=== PATIENT | female | born 2000 | race Hispanic/Latino ===

== ENCOUNTER 2023-05-01 00:46 | Emergency (ER) | payer MEDICAID ==
[2023-05-01] MEDS ORDERED: Acetaminophen 500 MG TAB ONE (01:32)
[2023-05-01] MEDS ORDERED: Ibuprofen 200 MG TAB ONE (02:26)
== END 2023-05-01 02:33 | disposition home or self-care (01) ==
LOC: CSHERS 00:46
DX: H61.21 Impacted cerumen, right ear (principal)
CPT/HCPCS: 99283